=== PATIENT | male | born 1990 | race Caucasian/White ===

== ENCOUNTER 2020-01-25 16:32 | Emergency (ER) | payer BC, MEDICAID ==
[~2020-01-25] VITALS: Ht 167.6 cm; Wt 74.4 kg
[2020-01-25 16:47] VITALS: Ht 167.6 cm; Wt 74.4 kg
[2020-01-25 19:43] VITALS: BP 128/75
== END 2020-01-25 19:43 | disposition home or self-care (01) ==
LOC: ED 16:32
DX: J11.1 Influenza due to unidentified influenza virus with other respiratory manifestations (principal)